=== PATIENT | female | born 1960 | race Caucasian/White ===

== ENCOUNTER → 2018-05-29 | Outpatient (CLI) | payer OTHER ==
[~2018-05-29] MED LIST: BYSTOLIC10 MG PO; CIPROFLOXACIN500 M1 PO; EVISTA; FIORICET 50-321 EACH PO; KEPPRA 500 MG500 M1 PO; LAMICTAL; LAMOTRIGINE200 M1 PO; LISINOPRIL10 MG PO; MACRODANTIN100 MG PO; MULTIVITAMINS PO; ONDANSETRON HCL4 M2 PO; TEMODAR180 MG PO; TRAMADOL 50 MG50 MG PO; TUSSIONEX PENN473 ML PO; ZOFRAN 4 MG ORAL4 M1 DIS; ZPAK PO
== END ==
LOC: M.RAD 16:23
DX: Z12.31 Encounter for screening mammogram for malignant neoplasm of breast (principal)

== ENCOUNTER → 2019-05-29 | Outpatient (CLI) | payer OTHER | LOC: M.RAD 16:16 | DX: Z12.31 Encounter for screening mammogram for malignant neoplasm of breast (principal) ==

== ENCOUNTER → 2020-05-26 | Outpatient (CLI) | payer BC | LOC: M.RAD 11:23 | PROVIDERS: ATTEND Family Medicine | DX: Z12.31 Encounter for screening mammogram for malignant neoplasm of breast (principal) ==

== ENCOUNTER → 2021-05-20 | Outpatient (CLI) | payer BC | LOC: M.RAD 15:19 | PROVIDERS: ATTEND Family Medicine | DX: Z12.31 Encounter for screening mammogram for malignant neoplasm of breast (principal) ==